=== PATIENT | female | born 1990 | race Caucasian/White ===

== ENCOUNTER 2016-07-20 22:33 | Emergency (ER) | payer OTHER ==
[~2016-07-20 22:33] MED LIST: NAPR500T8 PO
[2016-07-20 22:57] VITALS: BP 117/73
[2016-07-20] MEDS ORDERED: NAPR500T8 PO (23:15)
--- NOTE | 2016-07-20 23:15 | PHYS DOC ---
Past Medical History Past Medical History: No Pertinent History Past Surgical History: Tubal ligation, Other Additional Past Surgical Histo: D&C x 2 Alcohol Use: None Drug Use: None Adult General Chief Complaint Chief Complaint: LOWER EXT PAIN HPI HPI Patient is a 26 year old female who presents today with mild right medial ankle pain that began today while ambulating in [facility]. Patient denies falling. Review of Systems Review of Systems Constitutional: Denies fever or chills [] Musculoskeletal: mild right medial ankle pain Integument: Denies rash or skin lesions [] Neurologic: Denies headache, focal weakness or sensory changes [] Endocrine: Denies polyuria or polydipsia [] Allergies Allergies Allergies Coded Allergies Type Severity Reaction Last Updated Verified allantoin Allergy Unknown EDEMA OF MOUTH AND RASH 08/31/14 No benzalkonium chloride Allergy Unknown EDEMA OF MOUTH AND RASH 08/31/14 No benzocaine Allergy Unknown EDEMA OF MOUTH AND RASH 08/31/14 No carbamide peroxide Allergy Unknown EDEMA OF MOUTH AND RASH 08/31/14 No Physical Exam Physical Exam Constitutional: Well developed, well nourished, no acute distress, non-toxic appearance. [] Skin: Warm, dry, no erythema, no rash. [] Back: No tenderness, no CVA tenderness. [] Extremities: Right ankle with small amount of soft tissue swelling diffusely. Slight tenderness on palpation of the right medial ankle. Full range of motion to the right ankle, adequate flexion and extension of the right foot. +2 right pedal pulse. Cap refill less than 2 seconds to the right lower extremity. Sensation intact to the right lower extremity. Neurologic: Alert and oriented X 3, normal motor function, normal sensory function, no focal deficits noted. [] Psychologic: Affect normal, judgement normal, mood normal. [] Current Patient Data Vital Signs Vital Signs Date Time Temp Pulse Resp B/P Pulse Ox O2 Delivery O2 Flow Rate FiO2 07/20/16 22:57 98.0 85 18 100 Room Air 98.0 EKG EKG [] Radiology/Procedures Radiology/Procedures [] Course & Med Decision Making Course & Med Decision Making Pertinent Labs and Imaging studies reviewed. (See chart for details) Patient is in the ED with right ankle pain that began when ambulating at [facility]. Right ankle x-rays interpreted by Dr. Aguilera and negative for any acute findings. Patient probably sprained her right ankle. Air cast was applied to the right ankle by the ED RN, neurovascular exam was done by me. Ice and elevation encouraged. Naproxen for pain. Follow-up with orthopedic doctor in one week if pain continues [place] Disclaimer Dragon Disclaimer This electronic medical record was generated, in whole or in part, using a voice recognition dictation system. Departure Departure Impression: Primary Impression: Right ankle sprain Disposition: HOME, SELF-CARE Condition: STABLE Referrals: NO PCP (PCP) SIMEON RAE MD See him in one week Patient Instructions: Ankle Sprain Additional Instructions: You were seen for right ankle sprain that occurred while ambulating. Wear the splint as needed. Ice and elevate the extremity as tolerated. Take anti- inflammatories like naproxen as needed for pain. Follow-up with orthopedic doctor provided in a week if pain continues. Scripts Naproxen 500 Mg Tablet.dr1 Tab PO BID #60 TAB Ref 2 Prov:JUAN DIEGO ORTIZ APRN 07/20/16 Problem Qualifiers Primary Impression: Right ankle sprain Encounter type: initial encounter Involved ligament of ankle: unspecified ligament Qualified Code: S93.401A - Sprain of unspecified ligament of right ankle, initial encounter JUAN DIEGO ORTIZ APRN Jul 20, 2016 23:15
--- NOTE | 2016-07-21 07:04 | RAD ---
Indication: Right ankle pain and swelling. Time of exam 2239 hours. 3 views of the right ankle were obtained. Alignment is normal. Ankle mortise is well maintained. The talar dome is smooth. No fracture or dislocation is identified. Impression: No acute abnormality is detected.
== END 2016-07-20 23:19 | disposition home or self-care (01) ==
LOC: ER 22:33
DX: S93.401A Sprain of unspecified ligament of right ankle, initial encounter (principal); Z98.51 Tubal ligation status; Z88.8 Allergy status to other drugs, medicaments and biological substances; X58.XXXA Exposure to other specified factors, initial encounter; Y93.89 Activity, other specified; Y92.89 Other specified places as the place of occurrence of the external cause; Y99.8 Other external cause status
CPT/HCPCS: 73610; 99284-25

== ENCOUNTER 2016-09-14 20:50 | Emergency (ER) | payer OTHER ==
[2016-09-14 21:07] VITALS: BP 100/70
[2016-09-14] MEDS ORDERED: IBUPROFEN 600 MG TABLET. PO ONE (22:00)
[2016-09-14 22:01] LABS: OBC FLU VALID
--- NOTE | 2016-09-14 22:18 | PHYS DOC ---
Past Medical History Past Medical History: No Pertinent History Past Surgical History: Tubal ligation, Other Additional Past Surgical Histo: D&C x 2 Additional Information: Nonsmoker Alcohol Use: None Drug Use: None Adult General Chief Complaint Chief Complaint: MULTIPLE COMPLAINTS [facility] HPI Patient is a 26 year old female who presents with fever and cough starting 3 days ago. She reports temperature up to 104.8F. She's had a nonproductive cough with shortness of breath. She also has nasal congestion and sore throat. She denies ear pain, nausea, vomiting, or diarrhea. She last took Tylenol at 11: 30 today. She did not receive a flu shot this season. She does not have a PCP. Review of Systems Review of Systems Constitutional: Reports fever. Eyes: Denies change in visual acuity, redness, or eye pain. [] HENT: Denies ear pain. Reports nasal congestion and sore throat. Respiratory: Reports nonproductive cough and shortness of breath. Cardiovascular: Denies chest pain, palpitations or edema. [] GI: Denies abdominal pain, nausea, vomiting, bloody stools or diarrhea. [] : Denies dysuria, hematuria or urinary frequency. [] Musculoskeletal: Denies back pain or joint pain. [] Integument: Denies rash or skin lesions. [] Neurologic: Denies headache, focal weakness or sensory changes. [] Endocrine: Denies polyuria or polydipsia. [] Psych: Denies anxiety or depression. [] All systems reviewed and negative unless otherwise stated in the HPI. Current Medications Current Medications Current Medications Medications (Trade) Dose Ordered Sig/Ya Start Time Stop Time Status Last Admin Dose Admin Ibuprofen (Motrin) 600 mg 1X ONCE 09/14/16 22:00 09/14/16 22:01 DC 09/14/16 21:56 600 MG Allergies Allergies Allergies Coded Allergies Type Severity Reaction Last Updated Verified allantoin Allergy Intermediate EDEMA OF MOUTH AND RASH 09/14/16 No benzalkonium chloride Allergy Intermediate EDEMA OF MOUTH AND RASH 09/14/16 No benzocaine Allergy Intermediate EDEMA OF MOUTH AND RASH 09/14/16 No carbamide peroxide Allergy Intermediate EDEMA OF MOUTH AND RASH 09/14/16 No latex Allergy Intermediate RASH 09/14/16 Yes Physical Exam Physical Exam Constitutional: Well developed, well nourished, no acute distress, non-toxic appearance. [] HENT: Normocephalic, atraumatic, bilateral external ears normal, oropharynx moist, no oral exudates, nose normal. Bilateral TMs without erythema or bulging. There is no posterior pharyngeal erythema or tonsillar edema. Eyes: PERRLA, EOMI, conjunctiva normal, no discharge. [] Neck: Normal range of motion, no tenderness, supple, no stridor. [] Cardiovascular: Heart rate regular rhythm, no murmur [] Lungs & Thorax: Bilateral breath sounds clear to auscultation without wheezes, rales, or rhonchi. Skin: Warm, dry, no erythema, no rash. [] Neurologic: Alert and oriented X 3, normal motor function, normal sensory function, no focal deficits noted. [] Psychologic: Affect normal, judgement normal, mood normal. [] Current Patient Data Vital Signs Vital Signs Date Time Temp Pulse Resp B/P Pulse Ox O2 Delivery O2 Flow Rate FiO2 09/14/16 21:07 102.4 120 20 97 Room Air 102.4 Lab Values Laboratory Tests Test 09/14/16 21:10 Influenza Type A Antigen Negative (NEGATIVE) Influenza Type B Antigen Positive (NEGATIVE) Rapid strep negative EKG EKG [] Radiology/Procedures Radiology/Procedures [] Course & Med Decision Making Course & Med Decision Making Pertinent Labs and Imaging studies reviewed. (See chart for details) [] Dragon Disclaimer Dragon Disclaimer This electronic medical record was generated, in whole or in part, using a voice recognition dictation system. Departure Departure Impression: Primary Impression: Influenza B Disposition: 01 HOME, SELF-CARE Condition: STABLE Referrals: NO PCP (PCP) Patient Instructions: Influenza, Adult, [id number] Additional Instructions: You tested positive for influenza B. This is a viral illness and antibiotics do not help. Please take Tylenol and ibuprofen for fever and pain control. Use according to package instructions. Please drink lots of water to stay hydrated and getting plenty of rest. Please stay home from work or school for rest of the week to avoid spreading the illness to others. Return to the emergency department if you have any new or concerning symptoms. CASSI JOSUE Sep 14, 2016 22:18
[2016-09-15 06:11] LABS: NEGATIVE OBC STREP NEG; POSITIVE OBC STREP POS
== END 2016-09-14 22:34 | disposition home or self-care (01) ==
LOC: ER 20:50
DX: J10.1 Influenza due to other identified influenza virus with other respiratory manifestations (principal); Z88.8 Allergy status to other drugs, medicaments and biological substances; Z91.040 Latex allergy status
CPT/HCPCS: 87070; 87804; 87880; 99284

== ENCOUNTER 2016-11-04 12:47 | Emergency (ER) | payer OTHER ==
[~2016-11-04] VITALS: Ht 180.3 cm; Wt 76.2 kg
[2016-11-04 13:15] LABS: GLUCOSE,URINE NEGATIVE (NEG)
[2016-11-04 13:23] LABS: BACTERIA,URINE 0 /HPF (0-FEW); RBC,URINE OCC /HPF (0-2); WBC,URINE 20-40 /HPF (0-4)
[2016-11-04 13:24] LABS: SQUAMOUS EPITHELIAL CELL,UR FEW /LPF
[2016-11-04] MEDS ORDERED: MORPHINE SULFATE 10 MG/ML VIAL. IV ONE (13:30)
[2016-11-04] MEDS ORDERED: KETOROLAC TROMETHAMINE 30 MG/ML INJ. IV ONE (13:30)
[2016-11-04] MEDS ORDERED: ONDANSETRON PF 4 MG/2 ML VIAL. IV ONE (13:30)
[2016-11-04] MEDS ORDERED: IV NORMAL SALINE 1000ML BAG 1,000 ML IV ONE (13:30)
[2016-11-04 13:36] LABS: BASO % 0 % (0-3); EOS % 0 % (0-3); HEMATOCRIT 37.2 % (36.0-47.0); HEMOGLOBIN 12.7 g/dL (12.0-15.5); LYMPH # 1.8 x10^3/uL (1.0-4.8); LYMPH % 14 % (24-48); MEAN CORPUSCULAR HEMOGLOBIN 30 pg (25-35); MEAN CORPUSCULAR HGB CONC 34 g/dL (31-37); MEAN CORPUSCULAR VOLUME 88 fL (79-100); MONO % 12 % (0-9); NEUT % 75 % (31-73); PLATELET COUNT 174 x10^3/uL (140-400); RED BLOOD COUNT 4.23 x10^6/uL (3.50-5.40); RED CELL DISTRIBUTION WIDTH 14.1 % (11.5-14.5)
[2016-11-04 13:48] LABS: CALCIUM 8.9 mg/dL (8.5-10.1); CREATININE 0.9 mg/dL (0.6-1.0); GFR 76.9; POTASSIUM 3.2 mmol/L (3.5-5.1)
[2016-11-04 13:54] LABS: ALBUMIN 3.5 g/dL (3.4-5.0); ALBUMIN/GLOBULIN RATIO 0.8 (1.0-1.7); TOTAL BILIRUBIN 2.1 mg/dL (0.2-1.0); TOTAL PROTEIN 7.9 g/dL (6.4-8.2)
[2016-11-04 15:00] VITALS: BP 114/67
[2016-11-04] MEDS ORDERED: ONDA4TAB10 SL (15:14)
[2016-11-04] MEDS ORDERED: CIPR500T94 PO (15:14)
[2016-11-04] MEDS ORDERED: HYDR-971 PO (15:14)
--- NOTE | 2016-11-04 15:14 | PHYS DOC ---
Past Medical History Past Medical History: No Pertinent History Past Surgical History: Tubal ligation, Other Additional Past Surgical Histo: D&C x 2 Alcohol Use: None Drug Use: None Adult General Chief Complaint Chief Complaint: ABDOMINAL PAIN HPI HPI Patient is a 26 year old female who presents with lateral low back pain rated at 10 out of 10, generalized abdominal pain rated at 10 out of 10, and nausea that began last night. Patient is also complaining of subjective fevers. Patient denies any chance she is . Denies any urgency frequency or dysuria but states she thought she had a UTI and has been taking azo. Review of Systems Review of Systems Constitutional: Denies fever or chills [] Eyes: Denies change in visual acuity, redness, or eye pain [] HENT: Denies nasal congestion or sore throat [] Respiratory: Denies cough or shortness of breath [] Cardiovascular: No additional information not addressed in HPI [] GI: abdominal pain, nausea, : See history of present illness Musculoskeletal: Bilateral low back pain Integument: Denies rash or skin lesions [] Neurologic: Denies headache, focal weakness or sensory changes [] Endocrine: Denies polyuria or polydipsia [] Current Medications Current Medications Current Medications Medications (Trade) Dose Ordered Sig/Ya Start Time Stop Time Status Last Admin Dose Admin Ketorolac Tromethamine (Toradol) 30 mg 1X ONCE 11/04/16 13:30 11/04/16 13:31 DC 11/04/16 13:43 30 MG Morphine Sulfate 5 mg 1X ONCE 11/04/16 13:30 11/04/16 13:31 DC 11/04/16 13:45 5 MG Ondansetron HCl (Zofran) 4 mg 1X ONCE 11/04/16 13:30 11/04/16 13:31 DC 11/04/16 13:41 4 MG Sodium Chloride 1,000 ml @ 1,000 mls/hr 1X ONCE 11/04/16 13:30 11/04/16 14:29 DC 11/04/16 13:40 1,000 MLS/HR Allergies Allergies Allergies Coded Allergies Type Severity Reaction Last Updated Verified allantoin Allergy Intermediate EDEMA OF MOUTH AND RASH 09/14/16 No benzalkonium chloride Allergy Intermediate EDEMA OF MOUTH AND RASH 09/14/16 No benzocaine Allergy Intermediate EDEMA OF MOUTH AND RASH 09/14/16 No carbamide peroxide Allergy Intermediate EDEMA OF MOUTH AND RASH 09/14/16 No latex Allergy Intermediate RASH 09/14/16 Yes Physical Exam Physical Exam Constitutional: Well developed, well nourished, no acute distress, non-toxic appearance. [] HENT: Normocephalic, atraumatic, bilateral external ears normal, oropharynx moist, no oral exudates, nose normal. [] Eyes: PERRLA, EOMI, conjunctiva normal, no discharge. [] Neck: Normal range of motion, no tenderness, supple, no stridor. [] Cardiovascular:Heart rate regular rhythm, no murmur [] Lungs & Thorax: Bilateral breath sounds clear to auscultation [] Abdomen: Bowel sounds normal, soft, no tenderness, no masses, no pulsatile masses. [] Skin: Warm, dry, no erythema, no rash. [] Back: No tenderness, mild bilateral CVA tenderness. [] Extremities: No tenderness, no cyanosis, no clubbing, ROM intact, no edema. [] Neurologic: Alert and oriented X 3, normal motor function, normal sensory function, no focal deficits noted. [] Psychologic: Affect normal, judgement normal, mood normal. [] Current Patient Data Vital Signs Vital Signs Date Time Temp Pulse Resp B/P (MAP) Pulse Ox O2 Delivery O2 Flow Rate FiO2 11/04/16 15:00 90 15 114/67 (83) 97 Room Air 11/04/16 13:12 99.4 99.4 Lab Values Laboratory Tests Test 11/04/16 12:12 11/04/16 13:10 11/04/16 13:26 POC Urine HCG, Qualitative Hcg negative (Negative) Urine Collection Type Unknown Urine Color Red Urine Clarity Cloudy Urine pH 5.0 Urine Specific [place] 1.015 Urine Protein mg/dL (NEG-TRACE) Urine Glucose (UA) Negative mg/dL (NEG) Urine Ketones (Stick) mg/dL (NEG) Urine Blood (NEG) Urine Nitrite (NEG) Urine Bilirubin (NEG) Urine Urobilinogen Dipstick mg/dL (0.2 mg/dL) Urine Leukocyte Esterase Trace (NEG) Urine RBC Occ /HPF (0-2) Urine WBC 20-40 /HPF (0-4) Urine Squamous Epithelial Cells Few /LPF Urine Bacteria 0 /HPF (0-FEW) White Blood Count 13.0 x10^3/uL (4.0-11.0) H Red Blood Count 4.23 x10^6/uL (3.50-5.40) Hemoglobin 12.7 g/dL (12.0-15.5) Hematocrit 37.2 % (36.0-47.0) Mean Corpuscular Volume 88 fL (79-100) Mean Corpuscular Hemoglobin 30 pg (25-35) Mean Corpuscular Hemoglobin Concent 34 g/dL (31-37) Red Cell Distribution Width 14.1 % (11.5-14.5) Platelet Count 174 x10^3/uL (140-400) Neutrophils (%) (Auto) 75 % (31-73) H Lymphocytes (%) (Auto) 14 % (24-48) L Monocytes (%) (Auto) 12 % (0-9) H Eosinophils (%) (Auto) 0 % (0-3) Basophils (%) (Auto) 0 % (0-3) Neutrophils # (Auto) 9.7 x10^3uL (1.8-7.7) H Lymphocytes # (Auto) 1.8 x10^3/uL (1.0-4.8) Monocytes # (Auto) 1.5 x10^3/uL (0.0-1.1) H Eosinophils # (Auto) 0.0 x10^3/uL (0.0-0.7) Basophils # (Auto) 0.0 x10^3/uL (0.0-0.2) Sodium Level 140 mmol/L (136-145) Potassium Level 3.2 mmol/L (3.5-5.1) L Chloride Level 102 mmol/L (98-107) Carbon Dioxide Level 29 mmol/L (21-32) Anion Gap 9 (6-14) Blood Urea Nitrogen 9 mg/dL (7-20) Creatinine 0.9 mg/dL (0.6-1.0) Estimated GFR (Cockcroft-Gault) 76.9 BUN/Creatinine Ratio 10 (6-20) Glucose Level 84 mg/dL (70-99) Calcium Level 8.9 mg/dL (8.5-10.1) Total Bilirubin 2.1 mg/dL (0.2-1.0) H Aspartate Amino Transferase (AST) 14 U/L (15-37) L Alanine Aminotransferase (ALT) 18 U/L (14-59) Alkaline Phosphatase 59 U/L (46-116) Total Protein 7.9 g/dL (6.4-8.2) Albumin 3.5 g/dL (3.4-5.0) Albumin/Globulin Ratio 0.8 (1.0-1.7) L Lipase 93 U/L (73-393) Laboratory Tests 11/04/16 13:26 Laboratory Tests 11/04/16 13:26 EKG EKG [] Radiology/Procedures Radiology/Procedures [] Course & Med Decision Making Course & Med Decision Making Pertinent Labs and Imaging studies reviewed. (See chart for details) This is a 26 year old female patient who presents today with bilateral low back pain nausea and generalized abdominal pain. She has been taking azo in assumption she could have a UTI since yesterday. Negative urine hCG, CBC 13.1. CMP with a slightly low potassium of 3.1. Encouraged to increase her dietary potassium intake at home. Considering her symptoms this patient could possibly have pyelonephritis. Unfortunately lab could not detect infection in her urine because she has been taking azo which has stained her urine. We did send her home with Cipro and Zofran. She was also given a prescription for pain medicine. She is to follow- up with her own doctor in the next 7 days. Instructed to push fluids. Provided return precautions and discharged in stable condition. Dragon Disclaimer Dragon Disclaimer This electronic medical record was generated, in whole or in part, using a voice recognition dictation system. Departure Departure Impression: Primary Impression: Back pain Additional Impression: Pyelonephritis Disposition: 01 HOME, SELF-CARE Condition: STABLE Referrals: NO PCP (PCP) Follow-up with your doctor in 1-2 weeks Patient Instructions: Back Pain, Adult, Pyelonephritis, Adult, [id number] Additional Instructions: You were seen with symptoms suspicious for kidney infection. Unfortunately you took Azo and lab could not identify infection in your urine. We went ahead and put on antibiotics. Please complete them. Take the prescribed pain medicine as needed. Push fluids. Scripts Ondansetron (ZOFRAN ODT) 4 Mg Tab.rapdis 1 TAB SL Q8HRS, #15 TAB Prov: JUAN DIEGO ORTIZ APRN 11/04/16 Ciprofloxacin Hcl (CIPRO) 500 Mg Tablet 1 TAB PO BID, #14 TAB Prov: MUTUNGA,JUAN DIEGO [place] 11/04/16 Hydrocodone/Apap 5-325 (NORCO 5-325 TABLET) 1 Each Tablet 1 TAB PO Q4HRS W/A, #12 TAB Prov: KRISTINEJUAN DIEGO BELTRAN [place] 11/04/16 Problem Qualifiers Primary Impression: Back pain Back pain location: low back pain Chronicity: acute Back pain laterality: bilateral Sciatica presence: without sciatica Qualified Codes: M54.5 - Low back pain JUAN DIEGO ORTIZ APRN November 04, 2016 15:14
== END 2016-11-04 15:22 | disposition home or self-care (01) ==
LOC: ER 13:06
DX: M54.5 Low back pain (principal); N12 Tubulo-interstitial nephritis, not specified as acute or chronic; Z88.8 Allergy status to other drugs, medicaments and biological substances; Z88.4 Allergy status to anesthetic agent; Z91.040 Latex allergy status
CPT/HCPCS: 36415; 80053; 81001; 81025; 83690; 85027; 87086; 96361; 96374; 96375; 99284; J1885; J2270; J2405; J7030; 87186